=== PATIENT | male | born 1940 | race Caucasian/White ===

== ENCOUNTER → 2020-01-28 | Outpatient (CLI) | payer MEDICARE, OTHER ==
[~2020-01-28] MED LIST: BETA1 PO; DUONEB; FLUSAL2505 IH; FOLI1 PO; FURO40 PO; HYDSUL200 PO; LEVO750 PO; LEVSOD175 PO; LISI20 PO; METO25ER PO; METTREX2.5 PO; MONT10T PO; OFLO.3OTSO AU; POTCHL20ER PO; PRED10 PO; RXALBOI INH; SULF500A PO; VITAMIN D3
== END | disposition home or self-care (01) ==
LOC: LAB EV 11:02 → LAB SHORT 11:02
DX: R05 Cough (principal)
CPT/HCPCS: U0003